=== PATIENT | male | born 1980 | race African-American/Black ===

== ENCOUNTER 2018-08-23 19:53 | Emergency (ER) | payer OTHER ==
[~2018-08-23] VITALS: Ht 172.7 cm; Wt 111.6 kg
[2018-08-23 20:19] VITALS: Ht 172.7 cm; Wt 111.6 kg
[2018-08-23 22:24] VITALS: BP 133/101
== END 2018-08-23 22:24 | disposition home or self-care (01) ==
LOC: ED 19:53
DX: Z20.2 Contact with and (suspected) exposure to infections with a predominantly sexual mode of transmission (principal)
CPT/HCPCS: 87491; 87591